=== PATIENT | female | born 1985 | race Two or more races ===

== ENCOUNTER 2017-04-27 16:48 | Emergency (ER) | payer OTHER ==
[2017-04-27 16:56] VITALS: BMI 27.1
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
[2017-04-27] MEDS ORDERED: TORADOL 60 MG VIAL IM ONE (17:03)
[2017-04-27] MEDS ORDERED: TORADOL 60 MG VIAL ONE (17:06)
[2017-04-27 17:11] VITALS: BP 122/76
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
--- NOTE | 2017-04-27 18:41 | RAD ---
HISTORY: Pain Study: Left knee series Comparison: None Findings: No evidence for acute cortical disruption or dislocation. There is mild joint space narrowing in the knee which is more prominent medially. The lateral radiograph fails to demonstrate significant join t effusion. Patellofemoral compartment is normal in its appearance. IMPRESSION: Mild osteoarthritic changes in the knee with no acute bony abnormality. Reported By:
== END 2017-04-27 19:06 | disposition home or self-care (01) ==
LOC: ER 16:54
DX: Z04.3 Encounter for examination and observation following other accident (principal); M17.12 Unilateral primary osteoarthritis, left knee; V49.9XXA Car occupant (driver) (passenger) injured in unspecified traffic accident, initial encounter
CPT/HCPCS: 70486; 73560; 96372; 99283; J1885

== ENCOUNTER 2017-04-30 19:18 | Emergency (ER) | payer OTHER ==
[2017-04-30 19:26] VITALS: BP 114/69; BMI 25.4
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
== END 2017-04-30 20:11 | disposition home or self-care (01) ==
LOC: ER 19:28
DX: Z04.3 Encounter for examination and observation following other accident (principal); V49.9XXA Car occupant (driver) (passenger) injured in unspecified traffic accident, initial encounter; Y92.9 Unspecified place or not applicable
CPT/HCPCS: 99281; 99282